=== PATIENT | female | born 1990 | race Caucasian/White ===

== ENCOUNTER 2020-01-20 09:01 | Emergency (ER) | payer BC ==
[2020-01-20 09:12] VITALS: BP 115/70
[2020-01-20 10:43] LABS: Influenza A Molecular Negative (Negative); Influenza B Molecular Negative (Negative)
--- NOTE | 2020-01-20 10:50 | UC ---
FLU HPI - HPI Summary HPI Summary: 29-year-old female presenting with sore throat 3 weeks and chills and cough that began last night. She states she has been very stressed lately in just doesn't want to be secondary anymore." Denies sore throat improving over the last 3 weeks but now worsening. States tea and honey helps alleviate sore throat some but it still hurts to swallow. Unsure of what her fevers have been running she does not have a thermometer. Denies nausea or vomiting. Denies shortness breath and wheezing. Notes minimal cough. Also notes minimal nasal congestion. Denies taking anything else for symptom relief. - History of Current Complaint Chief Complaint: UCGeneralIllness Stated Complaint: ACHES,CHILLS,SORE THROAT,COUGH Hx Obtained From: Patient Hx Last Menstrual Period: 01/14/20 Pain Intensity: 4 Pain Scale Used: 0-10 Numeric - Allergy/Home Medications Allergies/Adverse Reactions: Allergies Allergy/AdvReac Type Severity Reaction Status Date / Time No Known Allergies Allergy Verified 01/20/20 09:12 Home Medications: Home Medications Levothyroxine TAB* [Synthroid 125 MCG TAB*] 1 tab PO DAILY 01/20/20 [History Confirmed 01/20/20] PMH/Surg Hx/FS Hx/Imm Hx Endocrine History: Hypothyroidism - Surgical History Surgical History: None - Family History Known Family History: Positive: Non-Contributory - Social History Alcohol Use: Occasionally Substance Use Type: Marijuana Smoking Status (MU): Light Every Day Tobacco Smoker Review of Systems All Other Systems Reviewed And Are Negative: Yes Constitutional: Positive: Fever - subjective, Chills ENT: Positive: Sore Throat, Sinus Congestion Respiratory: Positive: Cough. Negative: Shortness Of Breath Cardiovascular: Positive: Negative Gastrointestinal: Positive: Negative Musculoskeletal: Positive: Negative Neurological/Mental Status: Positive: Negative Physical Exam - Summary Physical Exam Summary: Vital Signs Reviewed: Yes A+Ox3, no distress, well-appearing Eyes: Conjunctiva Clear ENT: Hearing grossly normal, TM x 2 clear, moist, uvula midline, +exudate, + pharyngeal erythema, +tonsillar swelling Neck: Positive: Supple Respiratory: Positive: No respiratory distress, No accessory muscle use + CTA throughout no w/r Cardiovascular: RRR nl s1, s2 no m/r Musculoskeletal Exam: [place] x 4 without difficulty Neurological: Positive: Alert Psychological: Positive: age appropriate behavior Skin: Positive: no rash, no ecchymosis Vital Signs: Initial Vital Signs Temp 98.7 F 01/20/20 09:08 Pulse 93 01/20/20 09:08 Resp 17 01/20/20 09:08 BP 115/70 01/20/20 09:08 Pulse Ox 98 01/20/20 09:08 Lab Results 01/20/20 01/20/20 Range/Units 10:15 10:31 Influenza A (Rapid) Negative (Negative) Influenza B (Rapid) Negative (Negative) Group A Strep Rapid Negative (Negative) Flu Course/Dx - Course Course Of Treatment: Negative rapid strep and flu tests. I sent a throat culture based on exudative pharyngitis x3 weeks. Patient also consented to testing for mono. I informed her that should be notified only with any positive results. Instructed to continue with symptomatic treatment in the meantime and to follow up with PCP if symptoms persist. Patient voiced understanding and agreed with treatment plan. - Differential Dx/Diagnosis Differential Diagnosis/HQI/PQRI: Influenza, Upper Respiratory Infection Provider Diagnosis: Exudative pharyngitis Discharge ED - Sign-Out/Discharge Documenting (check all that apply): Patient Departure All imaging exams completed and their final reports reviewed: No Studies - Discharge Plan Condition: Stable Disposition: HOME Patient Education Materials: Pharyngitis (ED), Viral Syndrome (ED) Referrals: Zoila Martin MD [Primary Care Provider] - If Needed Additional Instructions: As discussed, you tested negative for flu and strep throat today. A culture has been sent and you have also been tested for mono. You will be notified only with any positive results. You may take ibuprofen and/or tylenol as directed for fever and pain relief. You may use over the counter throat sprays, lozenges, or drink tea with honey for symptomatic relief. Get plenty of rest and fluids. Follow up with your primary care provider if symptoms do not improve within 7- 10 days. - Billing Disposition and Condition Condition: STABLE Disposition: Home
== END 2020-01-20 11:44 | disposition home or self-care (01) ==
LOC: UCEAST 09:01
DX: J02.9 Acute pharyngitis, unspecified (principal); R09.81 Nasal congestion; E03.9 Hypothyroidism, unspecified; F17.290 Nicotine dependence, other tobacco product, uncomplicated; Z79.890 Hormone replacement therapy
CPT/HCPCS: 36415; 86308; 86664; 86665; 87070; 87651; 99211; G0463

== ENCOUNTER 2023-10-04 19:40 | Inpatient (IN) ==
[2023-10-04] MEDS ORDERED: miSOPROStol 100 mcg TAB ONE (21:41)
[2023-10-04] MEDS ORDERED: Buffered Lidocaine 1% SYRIN 1 ml INTRADERM ONE (21:41)
[2023-10-04] MEDS ORDERED: Lactated Ringers 1000 ml BAG 1,000 ML IV ONE (21:41)
[2023-10-04] MEDS ORDERED: Lidocaine 1% VIAL 10 MG/ML 30 ML VIAL INJ PRN (21:41)
[2023-10-04] MEDS ORDERED: Lactated Ringers 1000 ml BAG 1,000 ML IV SCH (22:00)
[2023-10-05] MEDS ORDERED: miSOPROStol 100 mcg TAB ONE (02:00)
[2023-10-05 04:57] LABS: ABS Basophils 0.1 10^3/uL (0.0-0.1); ABS Lymphocytes 1.4 10^3/uL (1.0-4.8); ABS Monocytes 0.6 10^3/uL (0.0-0.9); ABS Neutrophils 18.9 10^3/uL (1.5-7.6); ABS Nucleated RBC 0.01 10^3/ul; Eosinophil % 0.2 %; Hematocrit 37.2 % (35-45); Hemoglobin 12.6 g/dL (11.5-14.3); Lymphocyte % 6.9 %; Mean Corpuscular Hemoglobin 29.6 pg (27-33); Mean Corpuscular Hgb Conc 33.9 g/dL (31-36); Mean Corpuscular Volume 87.3 fL (80-97); Mean Platelet Volume 9.7 fL (7.5-11.2); Platelet Count 313 10^3/uL (150-450); Red Blood Count 4.27 10^6/uL (3.63-4.92); Red Cell Distribution Width 15.2 % (12-17)
[2023-10-05] MEDS ORDERED: OBEPIDURAL (200 ML) 200 ML EPIDURAL ONE (05:13)
[2023-10-05] MEDS ORDERED: Lidocaine 1.5% EPI 1:200,000 30 ML SDV ONE ×2 (05:13→12:46)
[2023-10-05] MEDS ORDERED: Sodium Citrate/Citric Acid LIQ 15 ML UDC PO PRN (06:12)
[2023-10-05] MEDS ORDERED: Lactated Ringers 1000 ml BAG 500 ML IV PRN ×2 (06:12)
[2023-10-05] MEDS ORDERED: Lactated Ringers 1000 ml BAG 1,000 ML IV ONE (06:12)
[2023-10-05] MEDS ORDERED: Famotidine IV 10 MG/ML 2 ml VIAL (20 mg) IV PRN (06:12)
[2023-10-05] MEDS ORDERED: Phenylephrine 40 mcg/mL 10mL (400mcg) SYRINGE IV PUSH PRN ×2 (06:12)
[2023-10-05] MEDS ORDERED: OBEPIDURAL (200 ML) 200 ML EPIDURAL SCH (07:00)
[2023-10-05] MEDS ORDERED: Lactated Ringers 1000 ml BAG 1,000 ML IV SCH ×2 (07:00→21:00)
[2023-10-05 07:37] LABS: Urine Appearance Cloudy; Urine Bilirubin Negative (Negative); Urine Blood 3+ (Negative); Urine Color Yellow; Urine Glucose 1+(50 mg/dL) (Negative); Urine Ketones 2+ (Negative); Urine Nitrite Negative (Negative); Urine Protein 2+(100 mg/dL) (Negative); Urine Specific Gravity 1.021 (1.002-1.030); Urine Urobilinogen Negative (Negative)
[2023-10-05 07:39] LABS: Urine Bacteria 1+ (Absent); Urine Red Blood Cell 3+(>10/hpf) (Absent); Urine Squamous Epithelial Cell Present (Absent); Urine White Blood Cell 2+(11-20/hpf) (Absent)
[2023-10-05 07:59] LABS: Urine Creatinine Concentration 170.94 mg/dL (20.00-320.00); Urine TP Creat Ratio 0.26 mg/mg
[2023-10-05 08:07] LABS: Urine Benzodiazepine Screen None Detected (None Detect); Urine Cannabinoids Screen Presumptive Positive (None Detect); Urine Opiates Screen None Detected (None Detect)
[2023-10-05 08:12] LABS: Albumin 3.4 g/dL (3.2-5.2); Albumin/Globulin Ratio 1.2 (1-3); Calcium 8.9 mg/dL (8.6-10.3); Creatinine, Serum 0.54 mg/dL (0.51-0.95); Globulin 2.8 g/dL (2-4); Total Bilirubin 0.3 mg/dL (0.2-1.0); Total Protein 6.2 g/dL (6.4-8.9); eGFR CKD-EPI 123.1 (>60)
[2023-10-05] MEDS ORDERED: Oxytocin in LR 20,000 MILLI.UNIT/1,000 ML BAG IV SCH ×2 (09:50→20:25)
[2023-10-05] MEDS ORDERED: Bupivacaine 0.25% SDV PF 10 ML VIAL INJ ONE (12:18)
[2023-10-05] MEDS ORDERED: Lidocaine 2% PF 5 ML VIAL ONE (12:18)
[2023-10-05] MEDS ORDERED: Bupivacaine 0.5% SDV PF 30ML VIAL ONE (12:19)
[2023-10-05] MEDS ORDERED: fentaNYL 100 mcg/2 ml 50 MCG/ML VIAL ONE (12:46)
[2023-10-05] MEDS ORDERED: Witch Hazel PAD JAR TOPICAL PRN (20:22)
[2023-10-05] MEDS ORDERED: Glycerin ADULT 2.4 gm SUPP PR PRN (20:22)
[2023-10-05] MEDS ORDERED: Dibucaine 1% OINT 28.35 GM TUBE PR PRN (20:22)
[2023-10-06 07:17] LABS: ABS Basophils 0.1 10^3/uL (0.0-0.1); ABS Eosinophils 0.1 10^3/uL (0.0-0.5); ABS Lymphocytes 2.4 10^3/uL (1.0-4.8); ABS Monocytes 1.1 10^3/uL (0.0-0.9); ABS Neutrophils 14.9 10^3/uL (1.5-7.6); Eosinophil % 0.3 %; Hematocrit 29.7 % (35-45); Hemoglobin 10.1 g/dL (11.5-14.3); Lymphocyte % 13.1 %; Mean Corpuscular Hemoglobin 29.7 pg (27-33); Mean Corpuscular Hgb Conc 34.1 g/dL (31-36); Mean Corpuscular Volume 87.1 fL (80-97); Mean Platelet Volume 9.6 fL (7.5-11.2); Platelet Count 259 10^3/uL (150-450); Red Blood Count 3.41 10^6/uL (3.63-4.92); White Blood Count 18.6 10^3/uL (3.8-11.8)
[2023-10-06 12:17] LABS: TSH Ultra Thyroid Stim Horm 11.86 mcIU/mL (0.34-5.60)
[2023-10-06 12:20] LABS: Free T4 0.86 ng/dL (0.61-1.12)
[2023-10-07 08:01] VITALS: BP 136/78
== END 2023-10-07 14:07 | disposition home or self-care (01) | DRG 560 ==
LOC: MCHOBOUT 19:40 → MCHOB 21:47
PROVIDERS: ADMIT Midwife; ATTEND Advanced Practice Midwife